=== PATIENT | female | born 1940 | race Caucasian/White ===

== ENCOUNTER 2017-11-19 05:57 | Day surgery (SDC) | payer MEDICARE ==
[2016-06-25 06:56] VITALS: BMI 19.4
[2017-11-19] MEDS ORDERED: Morphine 10 mg/5 ml Oral Soln PO PRN (08:01)
[2017-11-19] MEDS ORDERED: Dextrose 5%/0.45% NS 1,000 ML IV SCH (08:15)
[2017-11-19] MEDS ORDERED: Lidocaine 1%/Epinephrine 1:100000 30 ml vial IJ STA (09:04)
[2017-11-19] MEDS ORDERED: Oxymetazoline 0.05% Nasal Spray (30 ml) NS ONE (10:01)
[2017-11-19] MEDS ORDERED: Lactated Ringer's 1,000 ML IV ONE (10:10)
[2017-11-19] MEDS ORDERED: Propofol 10 mg/ml Inj (20 ML) ONE (10:11)
[2017-11-19] MEDS ORDERED: Midazolam 2 MG/2 ML VIAL ONE (10:11)
[2017-11-19] MEDS ORDERED: Rocuronium 10 mg/ml (5 ml) ONE (10:12)
[2017-11-19] MEDS ORDERED: EPINEPHrine 1:1000 Nasal Sol(30mL) ONE (11:12)
[2017-11-19] MEDS ORDERED: Neostigmine Methylsulfate 3mg/3ml Syringe IV ONE (11:36)
[2017-11-19] MEDS ORDERED: HYDROmorphone 0.5 mg/0.5 ml ISec IVP PRN (11:41)
--- NOTE | 2017-11-19 12:08 | OP ---
PROCEDURE DATE: 11/19/2017 PREOPERATIVE DIAGNOSES: Deviated septum, large turbinates, sinusitis. POSTOPERATIVE DIAGNOSES: Deviated septum, large turbinates, sinusitis. PROCEDURE: Septoplasty, bilateral endoscopic maxillary antrostomy, bilateral endoscopic ethmoidectomy, bilateral endoscopic inferior turbinate reduction. SIGNIFICANT FINDINGS: Sinusitis noted in both ethmoid sinuses, maxillary antrum stenosed on both sides, large inferior turbinates, deviated septum. DESCRIPTION OF PROCEDURE: The patient was brought into the room, placed in supine position. Anesthesia was initiated through an ET tube. Navigation was set up and used throughout the case in order to ensure that the skull base and orbit were not entered. The patient was draped in the usual manner. Adrenaline-soaked pledgets were inserted into the nasal cavity that remained there for at least 5 minutes and removed. The septum was injected on both sides with lidocaine with epinephrine. A Дмитрий's incision was made on the left and a mucoperichondrial flap was raised. A vertical incision was made in the cartilage leaving a 1.5 cm anterior and superior strut and a mucoperichondrial flap was raised on the other side. Deviated portion of the cartilage and bone were removed using forceps and chisel. A quilting suture was used to suture the 2 flaps together. Next, a 0-degree scope was inserted into the nasal cavity. The inferior turbinates were noted to be enlarged and reduced in size. First on the right , then on the left going from an inferior to superior, anterior to posterior direction using scissors. Bleeding was controlled using suction cautery on both sides. Attention was turned to the left. The middle turbinate was injected with lidocaine with epinephrine and medialized. The uncinate process was medialized using a [employer] elevator and removed. A debrider was used to enter the ethmoid bulla inferomedially going posteriorly to the basal lamella, then anteriorly and superiorly until the ethmoid bulla was removed. The basal lamella was entered. Posterior ethmoid cells were entered and opened. The skull base was identified and followed anteriorly all the way to the area of the anterior ethmoid air cells. A curved suction hooked up to navigation was used to locate the maxillary antrum, which was noted to be stenosed and opened using forceps. Bleeding was controlled using adrenaline-soaked pledgets. Attention was turned to the other side. The middle turbinate was injected with lidocaine with epinephrine and medialized. The uncinate process was medialized using a [employer] elevator and removed. The ethmoid bulla was entered using a debrider inferomedially going posteriorly to the basal lamella and anteriorly until the ethmoid bulla was removed. The basal lamella was entered. Posterior ethmoid cells were entered and opened. The skull base was identified and followed anteriorly all the way to the area of the anterior ethmoid air cells. A curved suction hooked up to navigation was used to locate the maxillary antrum, which was noted to be stenosed. It was opened using forceps. Bleeding was controlled using adrenaline-soaked pledgets. Stents were placed. Splints were placed. The patient was taken off anesthesia and taken to recovery room in a stable manner. Pawel Traylor MD
[2017-11-19 14:07] VITALS: RESP 16
[2017-11-19 16:28] VITALS: BP 134/65; PULSE 100; TEMP 97.3; O2SAT 99
== END 2017-11-19 14:40 | disposition home or self-care (01) ==
LOC: C.SDS 05:57
PROVIDERS: ATTEND Otolaryngology
DX: J34.2 Deviated nasal septum (principal); J34.3 Hypertrophy of nasal turbinates; J32.0 Chronic maxillary sinusitis
CPT/HCPCS: 30520; 30802; 31256; 88304; J0690; J1100; J1170; J2001; J2250; J2704; J2710; J3010; J7120

== ENCOUNTER 2019-01-14 09:31 | Outpatient (CLI) | payer MEDICARE | END 2019-01-14 09:32 | disposition home or self-care (01) | LOC: C.CTH 09:31 ==

== ENCOUNTER 2019-04-03 09:41 | Outpatient (CLI) | payer MEDICARE, OTHER | END 2019-04-03 09:42 | disposition home or self-care (01) | LOC: C.MAMMO 09:41 | DX: Z12.31 Encounter for screening mammogram for malignant neoplasm of breast (principal); R06.00 Dyspnea, unspecified ==